=== PATIENT | male | born 1950 | race Caucasian/White ===

== ENCOUNTER 2017-07-12 18:43 | Emergency (ER) | payer MEDICAID, OTHER ==
[~2017-07-12] VITALS: Ht 170.2 cm; Wt 90.7 kg
[~2017-07-12 18:43] MED LIST: BUSP15TA52; ESCI5TAB; GABA800T87
[2017-07-13] MEDS ORDERED: KETOROLAC TROMETH 60MG/2ML VIAL IM ONE
[2017-07-13] MEDS ORDERED: TETANUS IMMUNE GLOBULIN 250 UNIT/ML SYRG IM ONE (02:30)
[2017-07-13 03:04] VITALS: BP 154/75
== END 2017-07-13 03:26 | disposition home or self-care (01) ==
LOC: ER 18:43 → EDUNIT# 18:43 → EDBD 18:43 → ER 07-13 03:26
DX: S91.311A Laceration without foreign body, right foot, initial encounter (principal); S91.111A Laceration without foreign body of right great toe without damage to nail, initial encounter; E66.01 Morbid (severe) obesity due to excess calories; Z68.31 Body mass index [BMI] 31.0-31.9, adult; S97.81XA Crushing injury of right foot, initial encounter; I10 Essential (primary) hypertension; F17.210 Nicotine dependence, cigarettes, uncomplicated; W23.0XXA Caught, crushed, jammed, or pinched between moving objects, initial encounter; Y93.89 Activity, other specified; Y99.8 Other external cause status; Y92.89 Other specified places as the place of occurrence of the external cause
CPT/HCPCS: 12002; 73620; 93005; 96372; 99284; J1670; J1885

== ENCOUNTER 2017-08-01 17:28 | Emergency (ER) | payer OTHER ==
[~2017-08-01] VITALS: Ht 170.2 cm; Wt 93.0 kg
[2017-08-01 19:33] LABS: Basophils # (auto) 0.1 uL; Eosinophils # (auto) 0.1 uL; Eosinophils % (auto) 0.8 % (0.0-7.0); Lymphocytes # (auto) 1.4 uL; Lymphocytes % (auto) 14.5 % (10.0-50.0); Mean Corpuscular Hemoglobin 33.3 pg (28.0-32.0); Mean Corpuscular Hgb Conc. 34.1 g/dL (32.0-36.0); Mean Corpuscular Volume 97.7 fL (80.0-100.0); Monocytes # (auto) 0.6 uL; Monocytes % (auto) 5.7 % (0.0-12.0); Neutrophils # (auto) 7.7 uL; Platelet Count (auto) 208 10^3/uL (140-450); Red Blood Cells 3.89 10^6/uL (4.5-5.90); Red Cell Distribution Width 14.7 % (11.8-14.3); White Blood Cell 9.8 10^3/uL (4.4-10.8)
[2017-08-01 19:51] LABS: Alanine Aminotransferase 108 U/L (16-61); Albumin 3.2 g/dL (3.4-5.0); Anion Gap 8 (5-15); BUN/Creatinine Ratio 21.3; Blood Urea Nitrogen 20 mg/dL (7-18); Calcium 8.4 mg/dL (8.5-10.1); Carbon Dioxide 26 mmol/L (21-32); Chloride 111 mmol/L (98-107); GFR African American 103 mL/min; GFR Non-African American 85 mL/min; Glucose 100 mg/dL (74-106); Potassium 4.3 mmol/L (3.5-5.1); Sodium 145 mmol/L (136-145)
[2017-08-01 20:00] LABS: Alkaline Phosphatase 117 U/L (45-117); Aspartate Aminotransferase 91 U/L (15-37); Bilirubin, Total 0.9 mg/dL (0.2-1.0); Total Protein 7.8 g/dL (6.4-8.2)
[2017-08-01] MEDS ORDERED: cefTRIAXone SOD 1,000 MG VL IM ONE (21:30)
[2017-08-01] MEDS ORDERED: LIDOCAINE 1% (LOCAL ANESTH.) PF 5ml SDV ONE (21:43)
[2017-08-01 21:54] VITALS: BP 140/92
[2017-08-01] MEDS ORDERED: cefTRIAXone W LIDOCAINE 1 GM IM IM ONE (22:00)
== END 2017-08-01 22:22 | disposition home or self-care (01) ==
LOC: ER 17:28
DX: L03.115 Cellulitis of right lower limb (principal); I48.91 Unspecified atrial fibrillation; F17.210 Nicotine dependence, cigarettes, uncomplicated; Z86.19 Personal history of other infectious and parasitic diseases
CPT/HCPCS: 36415; 71045; 73620; 80053; 83605; 84484; 85025; 87040; 93005; 96372; 99285; J0696